=== PATIENT | male | born 1970 | race Caucasian/White ===

== ENCOUNTER → 2017-10-27 | Outpatient (CLI) | payer BC ==
--- NOTE | 2017-10-28 09:30 | RAD ---
EXAM DESCRIPTION: Knee,Left 3 x-ray views CLINICAL HISTORY: 47 years, Male, PAIN IN UNSP KNEE COMPARISON: None TECHNIQUE: Three views of the left knee FINDINGS: No fracture or dislocation. Bones appear normally mineralized with normal trabecular pattern. Normal appearance of medial and lateral compartments on frontal view. Lateral view shows normal position of the patella. No patellar spurring or enthesopathy. Small suprapatellar knee joint effusion is present. Normal contour of quadriceps and tendon but the patellar tendon is indistinct due to surrounding edema. No abnormal patellar tilt or subluxation on patellar sunrise view. IMPRESSION: Negative for fracture or dislocation. Small suprapatellar joint effusion. Electronically signed by: Rogelio Cevallos MD 10/28/2017 9:29 AM CDT
== END | disposition home or self-care (01) ==
LOC: RAD 15:27
PROVIDERS: ATTEND Nurse Practitioner Family
DX: M25.569 Pain in unspecified knee (principal)